=== PATIENT | male | born 1995 | race Caucasian/White ===

== ENCOUNTER 2024-12-04 10:44 | Emergency (ER) | payer OTHER, SELFPAY ==
[2024-12-04 11:01] VITALS: BP 122/88; PULSE 97; RESP 20; TEMP 36.8; O2SAT 98
--- NOTE | 2024-12-04 11:30 | W.ED.GENAD ---
Discharge Plan Disposition Patient Disposition: Home Condition: Stable Discharge Details Chief Complaint: Burn Clinical Impression: Frostbite of hand, right Primary Care Provider: Unknown,Unknown ED Provider: Marcelo Meng Home Meds and New Rx's Prescriptions: No Action No Known Home Meds Discharge Instructions Additional Instructions: You can use aloe vera gel several times a day on the blisters and fingers. Also while in public try and keep the fingers covered with gauze. If not improving in a week follow-up with your primary care provider. If you feel more ill or have severe worsening pain return to the emergency department for reevaluation Frostbite The Basics Written by the doctors and editors at [facility] What is frostbite? - Frostbite is damage to a body part caused by cold. It can be mild or severe. Frostbite is most common on the ears, nose, cheeks, chin, fingers, and toes. Skin affected by frostbite might look white and feel numb or hard. What are the symptoms of frostbite? - Symptoms can include: Cold, numb skin - Skin might look white, fagan, purple, blue, red, or brown. The appearance depends on how severe the frostbite is and what color the skin is normally. The skin can also feel hard or waxy. Trouble moving the affected area - For example, fingers with frostbite might feel clumsy. Blisters with fluid or blood inside - These can develop after the body part with frostbite warms up. Damaged skin that has turned black - This is a sign of severe frostbite that can appear days later. How can I help a person who might have frostbite? - If you think you or someone you are with might have frostbite, you should: Move the person to a warmer place as soon as possible. Take off any wet clothing Try to warm up the affected area. To do this, you can: Put it in warm water - The water should feel comfortable when you touch it with unaffected skin. Do not use hot water. Use body heat - For example, you can hold cold, numb fingers under the armpits. Avoid things that could cause worse damage. For example: Try not to walk on feet that have frostbite, unless you have to walk to get to a warm place Do not warm the area if it might get cold again before you see a doctor or nurse Do not rub the area Do not use a stove or fire to warm the area, because numb skin can get burned by accident HPI General Mode of arrival: ambulatory. Date/Time Provider Initiated Documentation: 12/04/24 10:49. Limitations to Documentation: no limitations. Information obtained by: patient. History of Present Illness 29 year old M presents to the emergency department with the chief complaint of right hand blisters, described as mild, Quality is described as aching, and is localized to the right and upper extremity. and it has been constant. No relieving factors improve symptom(s), No exacerbating factors reported . Patient notes no other symptoms.. Patient did receive the following treatments prior to arrival, none Related Data Home Medications ?Medication ?Instructions ?Recorded ?Confirmed Unknown [No Known Home Meds] 12/04/24 12/04/24 Allergies Allergy/AdvReac Type Severity Reaction Status Date / Time No Known Allergies Allergy Unverified 12/04/24 11:07 General Stated Complaint: Burn DAVID: 3 Review of Systems All systems reviewed & are unremarkable except as noted in HPI and below Constitutional Constitutional: Denies chills and Denies fever(s) Cardiovascular Cardiovascular: Denies chest pain and Denies dyspnea Respiratory Respiratory: Denies dyspnea Gastrointestinal Gastrointestinal: Denies vomiting Psychiatric Psychiatric: Denies depression Exam Const General: no acute distress Orientation: alert HENMT Head: normal to inspection Ears: external ears normal General nose exam: external nose normal Mouth: moist mucous membranes Eyes General: appearance normal, both eyes and all related structures Neck Neck: normal visual inspection Resp Effort & Inspection: normal respiratory effort and able to speak in complete sentences Cardio Rate: regular rate Skin General skin exam: elasticity normal Neuro General: patient alert and patient oriented x3 Extrem General: capillary refill normal Psych Mental Status: mental status grossly normal Course Vital Signs Vital signs: Vital Signs Temperature 36.8 C 12/04/24 11:01 Pulse 97 H 12/04/24 11:01 Respiratory Rate 20 12/04/24 11:01 Blood Pressure 122/88 12/04/24 11:01 Pulse Oximetry 98 12/04/24 11:01 Temperature 36.8 C 12/04/24 11:01 Pulse 97 H 12/04/24 11:01 Respiratory Rate 20 12/04/24 11:01 Blood Pressure 122/88 12/04/24 11:01 Pulse Oximetry 98 12/04/24 11:01 Oxygen Delivery Method Room Air 12/04/24 11:01 Oxygen Flow Rate 0 12/04/24 11:01 Pain Level 9 12/04/24 11:01 Medical Decision Making 29-year-old male comes in with mild pain in his right hand with blistering. He apparently was skiing yesterday and it was cold and lost his glove on his right hand. He says he ran his hand under warm water also at night. He has blisters over the distal right posterior ring, pinky and middle finger. There is no hemorrhage. There is no erythema. There is some mild swelling of the fingers. He is able to bend at all the joints. His cap refills intact. He says that his fingers do feel mildly numb but can feel me touching them. I advised that this is likely a first or second degree frostbite injury. These usually heal on their own well. I advised to use aloe vera on the areas and to keep the fingers covered until they are healed. He will follow-up with his PCP if not improving and return precautions given. He also had a ring at the base of his right pinky which had to be removed with a ring cutter due to the swelling and blisters. Quality:SDOH Health Related Social Needs: No Data to Display [facility] All Active Problems (Updated 12/04/24 @ 11:39 by Marcelo Meng MD) Frostbite of hand, right (Acute) Social History Smoking/Tobacco Use Status: Never Smoking risk assessment performed?: Yes Alcohol Intake: current Alcohol Intake frequency: 0-2 drinks per day Drug use: Never Substance use type: marijuana Housing: apartment Do you feel safe at home: No Do you feel safe in your relationship?: No
== END 2024-12-04 11:45 | disposition home or self-care (01) ==
LOC: ER 11:53
PROVIDERS: Emergency Provider Emergency Medicine
DX: T33.531A Superficial frostbite of right finger(s), initial encounter (principal); X31.XXXA Exposure to excessive natural cold, initial encounter; Y93.23 Activity, snow (alpine) (downhill) skiing, snowboarding, sledding, tobogganing and snow tubing; Y92.838 Other recreation area as the place of occurrence of the external cause
CPT/HCPCS: 99283